=== PATIENT | female | born 1985 | race American Indian/Alaskan Native ===

== ENCOUNTER 2017-04-23 20:52 | Emergency (ER) | payer MEDICAID ==
[~2017-04-23] VITALS: Ht 154.9 cm; Wt 72.7 kg
[~2017-04-23 20:52] MED LIST: CEPH500C5 PO; IBUP-1986 PO; NO HOME MEDS; PHEN-873 PO
[2017-04-23 21:23] LABS: CLARITY,URINE CLOUDY (Clear); COLOR,URINE YELLOW (Yellow); GLUCOSE, URINE NEGATIVE (Neg); KETONES,URINE 40 mg/dl (Neg); LEUKOCYTE ESTERASE ,URINE SMALL (Neg); NITRITES, URINE POSITIVE (Neg); OCCULT BLOOD,URINE MODERATE (Neg); PH,URINE 5.5 (4.8-8.0); PROTEIN,URINE 100 mg/dl (Neg); UROBILINOGEN,URINE 0.2 E.U/dL (0.2-1.0)
[2017-04-23 21:29] LABS: UA COLLECTION TYPE CLN CATCH MIDSTREAM
[2017-04-23 21:30] LABS: BACTERIA,URINE 4+ /HPF (Neg); SQUAMOUS EPITHELIAL CELL,UR FEW /LPF (FEW); WBC,URINE TNTC /HPF (0-4)
[2017-04-23 21:34] LABS: BASOPHILS % (AUTO) 0.3 % (0-1); EOSINOPHILS # (AUTO) 0.1 X10'3 (0-0.9); EOSINOPHILS % (AUTO) 1.5 % (0-6); HEMATOCRIT 31.8 % (35.0-45.0); HEMOGLOBIN 10.8 g/dl (12.0-16.0); LYMPHOCYTES # (AUTO) 0.9 X10'3 (1.1-4.8); LYMPHOCYTES % (AUTO) 9.9 % (21-51); MEAN CORPUSCULAR HEMOGLOBIN 28.6 PG (27.0-31.0); MEAN CORPUSCULAR HGB CONC 33.8 % (33.0-36.5); MEAN CORPUSCULAR VOLUME 84.8 FL (78-98); MEAN PLATELET VOLUME 6.3 FL (7.4-10.4); MONOCYTES # (AUTO) 0.7 X10'3 (0-0.9); MONOCYTES % (AUTO) 7.4 % (2-12); NEUTROPHILS # (AUTO) 7.5 X10'3 (1.8-7.7); NEUTROPHILS % (AUTO) 80.9 % (42-75); PLATELET COUNT 233 X10'3 (140-440); RED BLOOD COUNT 3.75 X10'6 (4.20-5.60); RED CELL DISTRIBUTION WIDTH 13.4 % (11.5-14.5); WHITE BLOOD COUNT 9.2 X10'3 (4.5-11.0)
[2017-04-23] MEDS ORDERED: phenazopyridine 100mg tablet PO ONE (21:35)
[2017-04-23 21:44] LABS: INR 0.9 INR; PROTHROMBIN TIME 9.4 SECONDS (9.0-12.0)
[2017-04-23 21:49] LABS: ALANINE AMINOTRANSFERASE 20 U/L (12-78); ALBUMIN 2.7 G/DL (3.4-5.0); ALBUMIN/GLOBULIN RATIO 0.7 (1.1-1.5); ALKALINE PHOSPHATASE 81 IU/L (46-116); ANION GAP 5 (8-16); ASPARTATE AMINO TRANSFERASE 12 U/L (10-37); BILIRUBIN,TOTAL 0.7 MG/DL (0.1-1.0); BLOOD UREA NITROGEN 5 MG/DL (7-18); BUN/CREATININE RATIO 7.1 (6.6-38.0); CALCIUM 8.5 MG/DL (8.5-10.1); CHLORIDE 99 MMOL/L (99-107); GLUCOSE 138 MG/DL (70-104); POTASSIUM 3.3 MMOL/L (3.5-5.1); SODIUM 131 MMOL/L (135-145); TOTAL CARBON DIOXIDE 26.6 MMOL/L (24-32); TOTAL PROTEIN 6.4 G/DL (6.4-8.2); eGFR > 90 ML/MIN
[2017-04-23] MEDS ORDERED: CefTRIAXone 2gm/NS 100ml IVPB 100 ML IV ONE (21:50)
[2017-04-23] MEDS ORDERED: normal saline 1000ml 1,000 ML IV ONE (22:00)
[2017-04-23] MEDS ORDERED: NITR100C6 PO (22:43)
[2017-04-23 23:41] VITALS: BP 92/65
== END 2017-04-23 23:43 | disposition home or self-care (01) ==
LOC: ER 20:52
DX: O23.42 Unspecified infection of urinary tract in pregnancy, second trimester (principal); O26.892 Other specified pregnancy related conditions, second trimester; M54.5 Low back pain; F15.10 Other stimulant abuse, uncomplicated; Z88.8 Allergy status to other drugs, medicaments and biological substances; Z3A.24 24 weeks gestation of pregnancy
CPT/HCPCS: 36415; 80053; 81001; 85025; 85610; 87077; 87088; 87186; 96365; 99285; J0696; J7030; 99284

== ENCOUNTER 2017-11-06 16:31 | Emergency (ER) | payer MEDICAID ==
[~2017-11-06] VITALS: Ht 154.9 cm; Wt 70.0 kg
[~2017-11-06 16:31] MED LIST changes: -CEPH500C5 PO; +NITR100C6 PO
[2017-11-06 16:37] VITALS: BP 124/78
[2017-11-06] MEDS ORDERED: LIDOcaine 1.5% w/epinephrine 1:200,000 5ml ampul IJ ONE (16:55)
[2017-11-06] MEDS ORDERED: CEPH-572 PO (17:07)
[2017-11-06] MEDS ORDERED: SULF1TAB49 PO (17:07)
== END 2017-11-06 17:42 | disposition home or self-care (01) ==
LOC: ER 16:32
DX: T63.301A Toxic effect of unspecified spider venom, accidental (unintentional), initial encounter (principal); F15.90 Other stimulant use, unspecified, uncomplicated; Z98.890 Other specified postprocedural states; Z88.5 Allergy status to narcotic agent; Z79.899 Other long term (current) drug therapy; Y92.89 Other specified places as the place of occurrence of the external cause
CPT/HCPCS: 10060; 99283; A6449; J3490

== ENCOUNTER 2018-10-29 12:03 | Emergency (ER) | payer MEDICAID ==
[~2018-10-29] VITALS: Ht 165.1 cm; Wt 70.9 kg
[~2018-10-29 12:03] MED LIST changes: +PHEN-786 PO; -PHEN-873 PO
[2018-10-29 12:07] VITALS: BP 125/76
--- NOTE | 2018-10-29 12:11 | NUR ---
PT GIVEN ICE PACK FOR NECK.
== END 2018-10-29 12:17 ==
LOC: ER 12:04
DX: Z02.89 Encounter for other administrative examinations (principal); F15.90 Other stimulant use, unspecified, uncomplicated; Z88.5 Allergy status to narcotic agent; Z79.899 Other long term (current) drug therapy; Z98.890 Other specified postprocedural states; V49.9XXA Car occupant (driver) (passenger) injured in unspecified traffic accident, initial encounter; Y93.89 Activity, other specified; Y92.488 Other paved roadways as the place of occurrence of the external cause; Y99.8 Other external cause status
CPT/HCPCS: 99283

== ENCOUNTER 2019-11-18 20:50 | Emergency (ER) | payer MEDICAID ==
[~2019-11-18] VITALS: Ht 154.9 cm; Wt 68.2 kg
[~2019-11-18 20:50] MED LIST changes: +ALBU8.5H8 IH
[2019-11-18 21:40] LABS: EOSINOPHILS # (AUTO) 0.1 X10'3 (0-0.9); EOSINOPHILS % (AUTO) 2.6 % (0-6); HEMATOCRIT 33.9 % (35.0-45.0); HEMOGLOBIN 10.9 g/dl (12.0-16.0); LYMPHOCYTES # (AUTO) 1.8 X10'3 (1.1-4.8); LYMPHOCYTES % (AUTO) 37.1 % (21-51); MEAN CORPUSCULAR HEMOGLOBIN 23.5 PG (27.0-31.0); MEAN CORPUSCULAR VOLUME 73.4 FL (78-98); MONOCYTES # (AUTO) 0.5 X10'3 (0-0.9); MONOCYTES % (AUTO) 10.3 % (2-12); NEUTROPHILS # (AUTO) 2.3 X10'3 (1.8-7.7); PLATELET COUNT 295 X10'3 (140-440); RED BLOOD COUNT 4.62 X10'6 (4.20-5.60); RED CELL DISTRIBUTION WIDTH 16.7 % (11.5-14.5); WHITE BLOOD COUNT 4.7 X10'3 (4.5-11.0)
[2019-11-18 21:54] LABS: ALANINE AMINOTRANSFERASE 18 U/L (12-78); ALBUMIN 3.7 G/DL (3.4-5.0); ALBUMIN/GLOBULIN RATIO 0.9 (1.1-1.5); ALKALINE PHOSPHATASE 90 IU/L (46-116); ANION GAP 7 (8-16); ASPARTATE AMINO TRANSFERASE 11 U/L (10-37); BILIRUBIN,TOTAL 0.3 MG/DL (0.1-1.0); BLOOD UREA NITROGEN 11 MG/DL (7-18); BUN/CREATININE RATIO 12.6 (6.6-38.0); CALCIUM 8.5 MG/DL (8.5-10.1); CHLORIDE 105 MMOL/L (99-107); CREATININE 0.87 MG/DL (0.40-0.90); GLUCOSE 83 MG/DL (70-104); LIPASE 87 U/L (73-393); POTASSIUM 3.9 MMOL/L (3.5-5.1); SODIUM 140 MMOL/L (135-145); TOTAL CARBON DIOXIDE 27.7 MMOL/L (24-32); TOTAL PROTEIN 7.6 G/DL (6.4-8.2); eGFR 75 ML/MIN
[2019-11-18 21:59] LABS: CLARITY,URINE CLOUDY (Clear); COLOR,URINE YELLOW (Yellow); GLUCOSE, URINE NEGATIVE (Neg); KETONES,URINE NEGATIVE (Neg); LEUKOCYTE ESTERASE ,URINE SMALL (Neg); NITRITES, URINE NEGATIVE (Neg); OCCULT BLOOD,URINE MODERATE (Neg); PH,URINE 5.5 (4.8-8.0); PROTEIN,URINE NEGATIVE (Neg); UA COLLECTION TYPE CLN CATCH MIDSTREAM; UROBILINOGEN,URINE 0.2 E.U/dL (0.2-1.0)
[2019-11-18 22:00] LABS: URINE HCG NEGATIVE (NEG)
[2019-11-18 22:04] LABS: BACTERIA,URINE 3+ /HPF (Neg); SQUAMOUS EPITHELIAL CELL,UR FEW /LPF (FEW); WBC,URINE TNTC /HPF (0-4)
[2019-11-18] MEDS ORDERED: morphine 10mg/ml inj. IV ONE (22:15)
[2019-11-18] MEDS ORDERED: ondansetron/PF 4mg/2ml inj IV ONE (22:15)
[2019-11-18] MEDS ORDERED: ketorolac trometh. 30mg/ml inj. IV ONE (22:15)
[2019-11-18] MEDS ORDERED: CEPH500C5 PO (23:41)
[2019-11-18] MEDS ORDERED: PHEN-716 PO (23:41)
[2019-11-18] MEDS ORDERED: cephalexin 250mg capsule PO ONE (23:45)
[2019-11-18] MEDS ORDERED: CefTRIAXone 1000mg IM Kit (w/lidocaine diluent) IM ONE (23:50)
[2019-11-19 00:30] VITALS: BP 128/89
[2019-11-19] MEDS ORDERED: phenazopyridine 100mg tablet PO ONE (00:35)
== END 2019-11-19 01:07 | disposition home or self-care (01) ==
LOC: ER 20:51
DX: N39.0 Urinary tract infection, site not specified (principal); R10.32 Left lower quadrant pain; R10.31 Right lower quadrant pain; M54.5 Low back pain; R11.0 Nausea; F15.90 Other stimulant use, unspecified, uncomplicated; Z87.440 Personal history of urinary (tract) infections; Z98.890 Other specified postprocedural states; Z88.8 Allergy status to other drugs, medicaments and biological substances; Z79.2 Long term (current) use of antibiotics; Z79.899 Other long term (current) drug therapy
CPT/HCPCS: 36415; 74176; 80053; 81001; 81025; 83690; 85025; 87088; 96372; 96374; 96375; 99284; J0696; J1885; J2270; J2405

== ENCOUNTER 2020-01-24 17:20 | Emergency (ER) | payer MEDICAID ==
[~2020-01-24] VITALS: Ht 154.9 cm; Wt 70.9 kg
[~2020-01-24 17:20] MED LIST changes: +PHEN-716 PO
[2020-01-24 18:29] LABS: URINE HCG NEGATIVE (NEG)
[2020-01-24 18:31] LABS: BASOPHILS # (AUTO) 0.1 X10'3 (0-0.2); BASOPHILS % (AUTO) 1.2 % (0-1); EOSINOPHILS # (AUTO) 0.5 X10'3 (0-0.9); EOSINOPHILS % (AUTO) 7.9 % (0-6); HEMATOCRIT 38.2 % (35.0-45.0); HEMOGLOBIN 12.1 g/dl (12.0-16.0); LYMPHOCYTES # (AUTO) 2.1 X10'3 (1.1-4.8); MEAN CORPUSCULAR HEMOGLOBIN 24.4 PG (27.0-31.0); MEAN CORPUSCULAR HGB CONC 31.7 g/dL (33.0-36.5); MEAN CORPUSCULAR VOLUME 76.9 FL (78-98); MEAN PLATELET VOLUME 7.4 FL (7.4-10.4); MONOCYTES # (AUTO) 0.5 X10'3 (0-0.9); MONOCYTES % (AUTO) 8.5 % (2-12); NEUTROPHILS # (AUTO) 2.6 X10'3 (1.8-7.7); NEUTROPHILS % (AUTO) 46.4 % (42-75); PLATELET COUNT 324 X10'3 (140-440); RED BLOOD COUNT 4.97 X10'6 (4.20-5.60); RED CELL DISTRIBUTION WIDTH 16.7 % (11.5-14.5); WHITE BLOOD COUNT 5.7 X10'3 (4.5-11.0)
[2020-01-24 18:32] LABS: CLARITY,URINE SLIGHTLY CLOUDY (Clear); COLOR,URINE YELLOW (Yellow); GLUCOSE, URINE NEGATIVE (Neg); KETONES,URINE NEGATIVE (Neg); LEUKOCYTE ESTERASE ,URINE NEGATIVE (Neg); NITRITES, URINE NEGATIVE (Neg); OCCULT BLOOD,URINE NEGATIVE (Neg); PH,URINE 5.5 (4.8-8.0); PROTEIN,URINE NEGATIVE (Neg); UA COLLECTION TYPE CLN CATCH MIDSTREAM; UROBILINOGEN,URINE 0.2 E.U/dL (0.2-1.0)
[2020-01-24 18:41] LABS: BACTERIA,URINE 1+ /HPF (Neg); MUCUS STRANDS MODERATE /LPF (Neg); RBC,URINE 0-2 /HPF (0-2); SQUAMOUS EPITHELIAL CELL,UR MODERATE /LPF (FEW)
[2020-01-24 18:47] LABS: ALANINE AMINOTRANSFERASE 19 U/L (12-78); ALBUMIN 3.9 G/DL (3.4-5.0); ALBUMIN/GLOBULIN RATIO 0.9 (1.1-1.5); ALKALINE PHOSPHATASE 85 IU/L (46-116); ANION GAP 7 (8-16); ASPARTATE AMINO TRANSFERASE 18 U/L (10-37); BILIRUBIN,TOTAL 0.3 MG/DL (0.1-1.0); BLOOD UREA NITROGEN 14 MG/DL (7-18); BUN/CREATININE RATIO 17.1 (6.6-38.0); CHLORIDE 103 MMOL/L (99-107); CREATININE 0.82 MG/DL (0.40-0.90); GLUCOSE 89 MG/DL (70-104); LIPASE 73 U/L (73-393); POTASSIUM 4.2 MMOL/L (3.5-5.1); SODIUM 140 MMOL/L (135-145); TOTAL CARBON DIOXIDE 30.2 MMOL/L (24-32); TOTAL PROTEIN 8.1 G/DL (6.4-8.2); eGFR 80 ML/MIN
[2020-01-24 18:56] VITALS: BP 129/91
--- NOTE | 2020-01-24 19:20 | NUR ---
Patient requested to use restroom approximately 15 minutes ago. She had not returned to her room so I checked all the restrooms in the ER and cannot find her. Her clothing and purse are gone. Florencio notified that the patient appears to have eloped.
== END 2020-01-24 19:22 | disposition left against medical advice (07) ==
LOC: ER 17:20
DX: R10.9 Unspecified abdominal pain (principal); Z53.21 Procedure and treatment not carried out due to patient leaving prior to being seen by health care provider
CPT/HCPCS: 36415; 80053; 81001; 81025; 83690; 85025; 87088; 93005

== ENCOUNTER 2020-03-13 01:08 | Emergency (ER) | payer MEDICAID ==
[~2020-03-13] VITALS: Ht 154.9 cm; Wt 69.0 kg
--- NOTE | 2020-03-13 02:39 | NUR ---
lab called for result of UA.
[2020-03-13 02:44] LABS: CLARITY,URINE CLOUDY (Clear); COLOR,URINE YELLOW (Yellow); GLUCOSE, URINE NEGATIVE (Neg); KETONES,URINE NEGATIVE (Neg); LEUKOCYTE ESTERASE ,URINE MODERATE (Neg); NITRITES, URINE NEGATIVE (Neg); OCCULT BLOOD,URINE SMALL (Neg); PH,URINE 5.5 (4.8-8.0); PROTEIN,URINE NEGATIVE (Neg); URINE HCG NEGATIVE (NEG)
[2020-03-13 03:02] LABS: UA COLLECTION TYPE CLN CATCH MIDSTREAM
[2020-03-13 03:03] LABS: BACTERIA,URINE FEW /HPF (Neg); SQUAMOUS EPITHELIAL CELL,UR FEW /LPF (FEW); WBC CLUMPS,URINE FEW /HPF (NEGATIVE); WBC,URINE 50-100 /HPF (0-4)
[2020-03-13] MEDS ORDERED: cephalexin 500mg capsule PO ONE (03:05)
--- NOTE | 2020-03-13 03:05 | NUR ---
lying on left side no complaints. additional blankets given for warmth
[2020-03-13] MEDS ORDERED: PHEN-716 PO (03:15)
[2020-03-13] MEDS ORDERED: CEPH500C5 PO (03:15)
[2020-03-13 03:23] VITALS: BP 126/83
== END 2020-03-13 03:24 | disposition home or self-care (01) ==
LOC: ER 01:09
DX: N39.0 Urinary tract infection, site not specified (principal); M54.5 Low back pain; F17.200 Nicotine dependence, unspecified, uncomplicated; F15.10 Other stimulant abuse, uncomplicated; Z88.5 Allergy status to narcotic agent; Z79.899 Other long term (current) drug therapy
CPT/HCPCS: 81001; 81025; 87077; 87088; 87186; 99283

== ENCOUNTER 2020-09-10 17:48 | Emergency (ER) | payer MEDICAID ==
[~2020-09-10] VITALS: Ht 154.9 cm; Wt 73.6 kg
[~2020-09-10 17:48] MED LIST changes: +CEPH-585 PO
[2020-09-10 18:10] VITALS: BP 148/100
== END 2020-09-10 22:08 | disposition left against medical advice (07) ==
LOC: ER 17:49
DX: R10.13 Epigastric pain (principal); Z53.21 Procedure and treatment not carried out due to patient leaving prior to being seen by health care provider

== ENCOUNTER 2021-10-07 14:23 | Emergency (ER) | payer MEDICAID ==
[~2021-10-07 14:23] MED LIST changes: +ALBU8.5H17 IH; -ALBU8.5H8 IH; -CEPH-585 PO
--- NOTE | 2021-10-07 15:03 | NUR ---
NOT IN LOBBY AT THIS TIME.
--- NOTE | 2021-10-07 15:27 | NUR ---
NOT IN LOBBY AT THIS TIME.
--- NOTE | 2021-10-07 15:40 | NUR ---
NOT IN LOBBY.
[2021-10-07] MEDS ORDERED: SULF1TAB49 PO (18:30)
[2021-10-07] MEDS ORDERED: IBUP-1986 PO (18:31)
== END 2021-10-07 16:02 | disposition left against medical advice (07) ==
LOC: ER 14:23
DX: Z00.8 Encounter for other general examination (principal); Z53.21 Procedure and treatment not carried out due to patient leaving prior to being seen by health care provider

== ENCOUNTER 2021-10-07 16:07 | Emergency (ER) | payer MEDICAID ==
[~2021-10-07] VITALS: Ht 154.9 cm; Wt 71.8 kg
[2021-10-07 16:26] VITALS: BP 133/88
[2021-10-07] MEDS ORDERED: ondansetron 4mg rapidly disintigrating tab PO ONE (17:55)
[2021-10-07] MEDS ORDERED: morphine 4 MG/ML inj SYRINge IM ONE (17:55)
[2021-10-07] MEDS ORDERED: SULF1TAB49 PO (18:30)
[2021-10-07] MEDS ORDERED: sulfamethoxazole/trimethoprim DS (800/160mg) tablet PO ONE (18:30)
[2021-10-07] MEDS ORDERED: IBUP-1986 PO (18:31)
== END 2021-10-07 19:02 | disposition home or self-care (01) ==
LOC: ER 16:08
DX: N75.1 Abscess of Bartholin's gland (principal); F15.10 Other stimulant abuse, uncomplicated; Z87.81 Personal history of (healed) traumatic fracture; Z87.448 Personal history of other diseases of urinary system; Z88.5 Allergy status to narcotic agent; Z79.899 Other long term (current) drug therapy; Z79.2 Long term (current) use of antibiotics
CPT/HCPCS: 56405; 96372; 99284; J2270

== ENCOUNTER 2022-06-15 22:43 | Emergency (ER) | payer MEDICAID ==
[~2022-06-15] VITALS: Ht 156.2 cm; Wt 74.5 kg
[2022-06-15 23:00] VITALS: BP 147/97
[2022-06-16] MEDS ORDERED: bacitracin 15gm ointment TP ONE (00:55)
[2022-06-16] MEDS ORDERED: ondansetron 4mg rapidly disintigrating tab PO ONE (00:55)
== END 2022-06-16 02:23 | disposition home or self-care (01) ==
LOC: ER 22:43
DX: S41.011A Laceration without foreign body of right shoulder, initial encounter (principal); F15.90 Other stimulant use, unspecified, uncomplicated; Z98.890 Other specified postprocedural states; Z88.5 Allergy status to narcotic agent; Z79.899 Other long term (current) drug therapy; W18.30XA Fall on same level, unspecified, initial encounter; Y93.89 Activity, other specified; Y92.89 Other specified places as the place of occurrence of the external cause; Y99.8 Other external cause status
CPT/HCPCS: 12004; 73030; 99283

== ENCOUNTER 2023-09-16 17:06 | Inpatient (IN) | payer MEDICAID ==
[~2023-09-16] VITALS: Ht 154.9 cm; Wt 84.3 kg
[2023-09-16 19:39] LABS: BASOPHILS # (AUTO) 0.1 X10'3 (0-0.2); BASOPHILS % (AUTO) 0.6 % (0-1); EOSINOPHILS # (AUTO) 0.2 X10'3 (0-0.9); EOSINOPHILS % (AUTO) 2.7 % (0-6); HEMATOCRIT 33.9 % (35.0-45.0); HEMOGLOBIN 10.7 g/dl (12.0-16.0); LYMPHOCYTES # (AUTO) 2.5 X10'3 (1.1-4.8); LYMPHOCYTES % (AUTO) 29.2 % (21-51); MEAN CORPUSCULAR HEMOGLOBIN 22.7 PG (27.0-31.0); MEAN CORPUSCULAR HGB CONC 31.4 g/dL (33.0-36.5); MEAN CORPUSCULAR VOLUME 72.2 FL (78-98); MEAN PLATELET VOLUME 6.4 FL (7.4-10.4); MONOCYTES # (AUTO) 0.7 X10'3 (0-0.9); MONOCYTES % (AUTO) 8.3 % (2-12); NEUTROPHILS # (AUTO) 5.1 X10'3 (1.8-7.7); NEUTROPHILS % (AUTO) 59.2 % (42-75); PLATELET COUNT 399 X10'3 (140-440); RED CELL DISTRIBUTION WIDTH 17.2 % (11.5-14.5); WHITE BLOOD COUNT 8.6 X10'3 (4.5-11.0)
[2023-09-16 19:46] LABS: HCG SERUM QL NEGATIVE
[2023-09-16 19:49] LABS: APTT 26 SECONDS (22-32)
[2023-09-16] MEDS: ondansetron/PF 4mg/2ml inj IV ONE (19:51)
[2023-09-16] MEDS: morphine 4 MG/ML inj SYRINge IV ONE (19:52)
[2023-09-16 19:54] LABS: ALANINE AMINOTRANSFERASE 27 U/L (12-78); ALBUMIN 3.3 G/DL (3.4-5.0); ALBUMIN/GLOBULIN RATIO 0.6 (1.1-1.5); ALKALINE PHOSPHATASE 112 IU/L (46-116); ANION GAP 5 (8-16); ASPARTATE AMINO TRANSFERASE 22 U/L (10-37); BILIRUBIN,TOTAL 0.2 MG/DL (0.1-1.0); BLOOD UREA NITROGEN 12 MG/DL (7-18); BUN/CREATININE RATIO 12.4 (10.0-20.0); C-REACTIVE PROTEIN 1.99 MG/DL (0.0-0.5); CALCIUM 8.9 MG/DL (8.5-10.1); CHLORIDE 104 MMOL/L (99-107); CREATININE 0.97 MG/DL (0.40-0.90); GLUCOSE 87 MG/DL (70-104); SODIUM 137 MMOL/L (135-145); TOTAL PROTEIN 8.7 G/DL (6.4-8.2); eCRCL 60 ML/MIN; eGFR 65 ML/MIN
[2023-09-16] MEDS: dexamethasone sod phosphate 10mg/ml inj IM STA (19:54)
[2023-09-16] MEDS: diphenhydrAMINE 50 mg/ml inj IV ONE (19:57)
[2023-09-16 20:01] LABS: POTASSIUM 4.2 MMOL/L (3.5-5.1)
[2023-09-16 20:03] LABS: INR 0.9 INR
[2023-09-16] MEDS: vancomycin/NS 1 GM ADD-VANTAGE 250 ML IV ONE (20:05)
[2023-09-16] MEDS: piperacillin/tazo 4.5gm/100ml 100 ML IV STA (20:23)
[2023-09-16] MEDS: normal saline 1000ml 1,000 ML IV ONE (21:12)
[2023-09-16] MEDS ORDERED: ondansetron 4mg rapidly disintigrating tab PO PRN (21:55)
[2023-09-16] MEDS ORDERED: magnesium 4gm in 100ml NS 100 ML IV PRN (21:55)
[2023-09-16] MEDS ORDERED: HYDROcodone/acetaminophen 5mg/325mg tablet PO PRN (21:55)
[2023-09-16] MEDS ORDERED: magnesium 2GM in 50ml NS 50 ML IV PRN (21:55)
[2023-09-16] MEDS ORDERED: acetaminophen 325mg tablet PO PRN ×2 (21:55)
[2023-09-16] MEDS ORDERED: magnesium Cl slow-release 64mg tablet PO PRN (21:55)
[2023-09-16] MEDS ORDERED: mag hydrox/Alum hydrox/simeth 30ml oral suspension PO PRN (21:55)
[2023-09-16] MEDS ORDERED: magnesium hydroxide 30ml (MOM) UD suspension PO PRN (21:55)
[2023-09-16] MEDS ORDERED: potassium Cl 40MEQ/1/2NS 520ml 520 ML IV PRN (21:55)
[2023-09-16] MEDS ORDERED: potassium Cl 20 mEq SR tablet PO PRN ×2 (21:55)
[2023-09-16 23:00] VITALS: BP 114/81; PULSE 74; RESP 12; TEMP 97.9; O2SAT 98
[2023-09-16 23:02] LABS: HEMOGLOBIN A1C 6.2 % (4.5-6.2)
[2023-09-16] MEDS: morphine 2 MG/ML inj. syringe IV PRN (23:10)
[2023-09-16 23:12] LABS: MAGNESIUM 1.5 MG/DL (1.5-2.4); POTASSIUM 3.2 MMOL/L (3.5-5.1)
[2023-09-17] MEDS: normal saline 1000ml 1,000 ML IV SCH (00:27)
[2023-09-17] MEDS: HYDROcodone/acetaminophen 10/325mg tab PO PRN (01:10)
[2023-09-17 01:49] LABS: BILIRUBIN,URINE NEGATIVE (Neg); CLARITY,URINE CLEAR (Clear); COLOR,URINE YELLOW (Yellow); GLUCOSE, URINE NEGATIVE (Neg); KETONES,URINE NEGATIVE (Neg); LEUKOCYTE ESTERASE ,URINE NEGATIVE (Neg); NITRITES, URINE NEGATIVE (Neg); OCCULT BLOOD,URINE NEGATIVE (Neg); PROTEIN,URINE NEGATIVE (Neg); UA COLLECTION TYPE CLN CATCH MIDSTREAM; UROBILINOGEN,URINE 0.2 E.U/dL (0.2-1.0)
[2023-09-17 02:04] LABS: URINE AMPHETAMINE SCREEN POSITIVE (Neg); URINE BARBITUATE SCREEN NEGATIVE (Neg); URINE BENZODIAZEPINES SCREEN NEGATIVE (Neg); URINE CANNABINOID SCREEN NEGATIVE (Neg); URINE COCAINE SCREEN NEGATIVE (Neg); URINE METHADONE SCREEN POSITIVE (Neg); URINE PHENCYCLIDINE SCREEN NEGATIVE (Neg)
[2023-09-17] MEDS: piperacillin/tazo 3.375gm/50ml 50 ML IV SCH (04:10)
[2023-09-17 06:24] LABS: BASOPHILS % (AUTO) 0.1 % (0-1); EOSINOPHILS % (AUTO) 0 % (0-6); HEMATOCRIT 31.1 % (35.0-45.0); LYMPHOCYTES # (AUTO) 1.3 X10'3 (1.1-4.8); LYMPHOCYTES % (AUTO) 22.1 % (21-51); MEAN CORPUSCULAR HEMOGLOBIN 22.8 PG (27.0-31.0); MEAN CORPUSCULAR HGB CONC 32.2 g/dL (33.0-36.5); MEAN PLATELET VOLUME 6.3 FL (7.4-10.4); MONOCYTES # (AUTO) 0.1 X10'3 (0-0.9); MONOCYTES % (AUTO) 1.9 % (2-12); NEUTROPHILS # (AUTO) 4.3 X10'3 (1.8-7.7); NEUTROPHILS % (AUTO) 75.9 % (42-75); PLATELET COUNT 358 X10'3 (140-440); RED BLOOD COUNT 4.39 X10'6 (4.20-5.60); RED CELL DISTRIBUTION WIDTH 17.2 % (11.5-14.5); WHITE BLOOD COUNT 5.7 X10'3 (4.5-11.0)
[2023-09-17 06:42] LABS: ALANINE AMINOTRANSFERASE 25 U/L (12-78); ALBUMIN 2.7 G/DL (3.4-5.0); ALBUMIN/GLOBULIN RATIO 0.6 (1.1-1.5); ALKALINE PHOSPHATASE 89 IU/L (46-116); ANION GAP 7 (8-16); ASPARTATE AMINO TRANSFERASE 14 U/L (10-37); BILIRUBIN,TOTAL 0.3 MG/DL (0.1-1.0); BLOOD UREA NITROGEN 8 MG/DL (7-18); BUN/CREATININE RATIO 9.9 (10.0-20.0); CALCIUM 8.2 MG/DL (8.5-10.1); CHLORIDE 102 MMOL/L (99-107); CHOL/HDL RATIO 2.4 (0.00-4.99); CHOLESTEROL 115 MG/DL (0-200); CREATININE 0.81 MG/DL (0.40-0.90); GLUCOSE 138 MG/DL (70-104); HDL CHOLESTEROL 47 MG/DL (35-60); LDL CHOLESTEROL 62 MG/DL (50-100); MAGNESIUM 1.9 MG/DL (1.5-2.4); POTASSIUM 4.3 MMOL/L (3.5-5.1); SODIUM 134 MMOL/L (135-145); TOTAL CARBON DIOXIDE 25.2 MMOL/L (24-32); TOTAL PROTEIN 7.6 G/DL (6.4-8.2); TRIGLYCERIDES 41 MG/DL (20-135); eCRCL 72 ML/MIN; eGFR 80 ML/MIN
[2023-09-17 07:01] VITALS: BP 107/65; PULSE 81; RESP 12; TEMP 98; O2SAT 97
[2023-09-17] MEDS: nicotine 21mg patch - 24 hr TD SCH (08:00)
[2023-09-17] MEDS: K and/or MAG REPLACEMENT MC SCH (08:00)
[2023-09-17] MEDS: docusate sod 100mg capsule PO SCH (08:15)
[2023-09-17] MEDS: heparin, porcine 5000 units/ml vial SQ SCH (08:16)
[2023-09-17] MEDS: pantoprazole 40 MG vial IV SCH (08:18)
[2023-09-17 11:00] VITALS: BP 135/86; PULSE 84; RESP 20; TEMP 98.2; O2SAT 100
[2023-09-17] MEDS ORDERED: METH-603 PO (11:04)
[2023-09-17] MEDS: methadone 10mg tablet PO SCH (11:44)
[2023-09-17] MEDS: ondansetron/PF 4mg/2ml inj IV PRN (13:01)
[2023-09-17 18:00] VITALS: BP 123/62; PULSE 85; RESP 18; TEMP 97.8; O2SAT 95
[2023-09-17 20:00] VITALS: RESP 18; O2SAT 95
[2023-09-17] MEDS: doxycycline inj 100 MG in normal saline 100ml IV soln 100 ML IV SCH (20:57)
[2023-09-17 22:00] VITALS: BP 104/62; PULSE 73; RESP 18; TEMP 97.6; O2SAT 99
[2023-09-18 06:27] VITALS: BP 99/68; PULSE 74; RESP 14; TEMP 97; O2SAT 96
[2023-09-18 06:41] LABS: BASOPHILS % (AUTO) 0.8 % (0-1); EOSINOPHILS # (AUTO) 0.1 X10'3 (0-0.9); EOSINOPHILS % (AUTO) 1.4 % (0-6); HEMATOCRIT 28.2 % (35.0-45.0); HEMOGLOBIN 8.8 g/dl (12.0-16.0); LYMPHOCYTES # (AUTO) 2.4 X10'3 (1.1-4.8); LYMPHOCYTES % (AUTO) 41.5 % (21-51); MEAN CORPUSCULAR HEMOGLOBIN 22.4 PG (27.0-31.0); MEAN CORPUSCULAR HGB CONC 31.3 g/dL (33.0-36.5); MEAN CORPUSCULAR VOLUME 71.6 FL (78-98); MEAN PLATELET VOLUME 6.7 FL (7.4-10.4); MONOCYTES # (AUTO) 0.5 X10'3 (0-0.9); MONOCYTES % (AUTO) 7.8 % (2-12); NEUTROPHILS # (AUTO) 2.8 X10'3 (1.8-7.7); NEUTROPHILS % (AUTO) 48.5 % (42-75); PLATELET COUNT 342 X10'3 (140-440); RED BLOOD COUNT 3.94 X10'6 (4.20-5.60); RED CELL DISTRIBUTION WIDTH 17.2 % (11.5-14.5); WHITE BLOOD COUNT 5.8 X10'3 (4.5-11.0)
[2023-09-18 06:52] LABS: ALANINE AMINOTRANSFERASE 23 U/L (12-78); ALBUMIN 2.3 G/DL (3.4-5.0); ALBUMIN/GLOBULIN RATIO 0.5 (1.1-1.5); ALKALINE PHOSPHATASE 79 IU/L (46-116); ANION GAP 5 (8-16); ASPARTATE AMINO TRANSFERASE 16 U/L (10-37); BILIRUBIN,TOTAL 0.3 MG/DL (0.1-1.0); BLOOD UREA NITROGEN 13 MG/DL (7-18); BUN/CREATININE RATIO 15.7 (10.0-20.0); CHLORIDE 107 MMOL/L (99-107); CREATININE 0.83 MG/DL (0.40-0.90); GLUCOSE 109 MG/DL (70-104); MAGNESIUM 1.7 MG/DL (1.5-2.4); PHOSPHORUS 3.7 MG/DL (2.3-4.5); POTASSIUM 3.6 MMOL/L (3.5-5.1); SODIUM 138 MMOL/L (135-145); TOTAL CARBON DIOXIDE 26.5 MMOL/L (24-32); TOTAL PROTEIN 6.5 G/DL (6.4-8.2); eCRCL 70 ML/MIN; eGFR 77 ML/MIN
[2023-09-18 07:45] VITALS: RESP 14; O2SAT 96
[2023-09-18 11:00] VITALS: BP 114/69; PULSE 60; RESP 16; TEMP 98.1; O2SAT 98
[2023-09-18 18:00] VITALS: BP 99/56; PULSE 67; RESP 16; TEMP 97.9; O2SAT 96
[2023-09-18 19:39] LABS: ALBUMIN, UR Note: % (.); PROTEIN,TOTAL,URINE 9.2 mg/dL (Not Estab.)
[2023-09-18 20:00] VITALS: RESP 16; O2SAT 96
[2023-09-18 22:00] VITALS: BP 95/56; PULSE 68; RESP 19; TEMP 97.8; O2SAT 98
[2023-09-19 06:53] LABS: BASOPHILS % (AUTO) 0.8 % (0-1); EOSINOPHILS # (AUTO) 0.2 X10'3 (0-0.9); EOSINOPHILS % (AUTO) 2.5 % (0-6); HEMATOCRIT 30.9 % (35.0-45.0); HEMOGLOBIN 9.9 g/dl (12.0-16.0); LYMPHOCYTES # (AUTO) 2.6 X10'3 (1.1-4.8); MEAN CORPUSCULAR HEMOGLOBIN 22.9 PG (27.0-31.0); MEAN CORPUSCULAR VOLUME 71.6 FL (78-98); MEAN PLATELET VOLUME 6.8 FL (7.4-10.4); MONOCYTES # (AUTO) 0.5 X10'3 (0-0.9); NEUTROPHILS # (AUTO) 2.9 X10'3 (1.8-7.7); NEUTROPHILS % (AUTO) 46.7 % (42-75); PLATELET COUNT 361 X10'3 (140-440); RED BLOOD COUNT 4.32 X10'6 (4.20-5.60); RED CELL DISTRIBUTION WIDTH 17.1 % (11.5-14.5); WHITE BLOOD COUNT 6.3 X10'3 (4.5-11.0)
[2023-09-19 07:38] LABS: ALANINE AMINOTRANSFERASE 27 U/L (12-78); ALBUMIN 2.5 G/DL (3.4-5.0); ALBUMIN/GLOBULIN RATIO 0.6 (1.1-1.5); ALKALINE PHOSPHATASE 80 IU/L (46-116); ANION GAP 6 (8-16); ASPARTATE AMINO TRANSFERASE 17 U/L (10-37); BILIRUBIN,TOTAL 0.2 MG/DL (0.1-1.0); BLOOD UREA NITROGEN 16 MG/DL (7-18); BUN/CREATININE RATIO 20.3 (10.0-20.0); CALCIUM 8.6 MG/DL (8.5-10.1); CHLORIDE 103 MMOL/L (99-107); CREATININE 0.79 MG/DL (0.40-0.90); GLUCOSE 103 MG/DL (70-104); MAGNESIUM 1.7 MG/DL (1.5-2.4); PHOSPHORUS 4.1 MG/DL (2.3-4.5); POTASSIUM 4.2 MMOL/L (3.5-5.1); SODIUM 137 MMOL/L (135-145); TOTAL CARBON DIOXIDE 27.9 MMOL/L (24-32); TOTAL PROTEIN 6.9 G/DL (6.4-8.2); eCRCL 74 ML/MIN; eGFR 82 ML/MIN
[2023-09-19 08:00] VITALS: RESP 18; O2SAT 99
[2023-09-19] MEDS: pantoprazole 40mg Tablet.DR PO SCH (08:00)
[2023-09-19 09:00] VITALS: RESP 18
[2023-09-19 09:52] LABS: A/G RATIO 0.7 (0.7-1.7); ALBUMIN 2.9 g/dL (2.9-4.4); ALPHA-1-GLOBULIN 0.3 g/dL (0.0-0.4); ALPHA-2-GLOBULIN 0.7 g/dL (0.4-1.0); GAMMA GLOBULIN 1.9 g/dL (0.4-1.8); GLOBULIN, TOTAL 3.9 g/dL (2.2-3.9); M-SPIKE Not Observed g/dL (Not Observed); PROTEIN, TOTAL, SERUM 6.8 g/dL (6.0-8.5)
[2023-09-19] MEDS ORDERED: ACET-1008 PO (09:55)
[2023-09-19] MEDS ORDERED: DOXY-243 PO (09:56)
[2023-09-19] MEDS ORDERED: NICO-687 TD (09:56)
== END 2023-09-19 13:18 | disposition home or self-care (01) | DRG 383 ==
LOC: ER 17:07 → ED HOLD 22:09 → SUR 3N 23:11
PROVIDERS: ADMIT Family Medicine; ATTEND Internal Medicine
DX: L03.115 Cellulitis of right lower limb (principal); N17.0 Acute kidney failure with tubular necrosis; D50.9 Iron deficiency anemia, unspecified; E88.09 Other disorders of plasma-protein metabolism, not elsewhere classified; L03.116 Cellulitis of left lower limb; F15.129 Other stimulant abuse with intoxication, unspecified; Z72.0 Tobacco use; Z79.899 Other long term (current) drug therapy; Z88.8 Allergy status to other drugs, medicaments and biological substances; Z98.891 History of uterine scar from previous surgery; Z76.5 Malingerer [conscious simulation]
CPT/HCPCS: 36415; 73700; 80053; 80061; 80305; 81003; 82728; 83036; 83540; 83605; 83735; 84100; 84132; 84145; 84155; 84156; 84165; 84166; 84703; 85025; 85610; 85651; 85730; 86140; 87040; 87081; 93306; 99285; A6223; A6258; A6446; A6449; C9113; G0378; J1100; J1200; J1644; J2270; J2405; J2543; J3370; J3490; J7030

== ENCOUNTER 2024-10-17 21:16 | Emergency (ER) | payer MEDICAID ==
[~2024-10-17] VITALS: Ht 154.9 cm; Wt 80.7 kg
[~2024-10-17 21:16] MED LIST changes: +ACET-1008 PO; -ALBU8.5H17 IH; -IBUP-1986 PO; +METH-603 PO; +NICO-687 TD; -NITR100C6 PO; -NO HOME MEDS; -PHEN-716 PO; -PHEN-786 PO
[2024-10-17 21:33] VITALS: BP 140/101; PULSE 97; RESP 17; O2SAT 98
[2024-10-17 21:48] LABS: LEUKOCYTE ESTERASE ,URINE SMALL (Neg); OCCULT BLOOD,URINE MODERATE (Neg)
[2024-10-17 21:55] LABS: NITRITES, URINE NEGATIVE (Neg); UA COLLECTION TYPE CLN CATCH MIDSTREAM
[2024-10-17 21:56] LABS: MUCUS STRANDS FEW /LPF (Neg); SQUAMOUS EPITHELIAL CELL,UR FEW /LPF (FEW)
--- NOTE | 2024-10-17 21:57 | Physician Documentation ---
History of Present Illness ~ Chief Complaint: Urinary Symptoms Stated Complaint: BLADDER INFECTION Time Seen by MD: 21:51 Primary Medical Doctor: NO PMD HPI 39-year-old female with complaints of possible UTI, dysuria, urgency and frequency x3 days. Denies any frequent UTIs last UTI year ago. Some lower back pain. Denies fevers. Medication Reconciliation Allergies: Coded Allergies: hydromorphone (Verified Allergy, Severe, itching, HIVES, SOB, 11/18/19) Scheduled Methadone Hcl* (Dolophine*), 100 MG PO DAILY, (Reported) Nicotine 21 MG Patch* (Habitrol 21 MG Patch*), 1 PATCH TD DAILY Scheduled PRN Acetaminophen (Tylenol), 1 TAB PO Q6H PRN for pain or fever, (Reported) Past Medical History Past Medical History: No Pertinent History, UTI, Extremity Fracture Past Surgical History: , orthopedic surgeries Alcohol Use: None Drug Use: methamphetamine Lives with: Other Lives In: Home Occupation: employed Review of Systems All Other Systems at this time: Reviewed and Negative Genitourinary: Reports: see HPI Physical Exam Vital Signs: RN Vital Signs have been reviewed: Yes, Heart Rate: 97, Respir atory Rate: 17, BP: 140/101, Pulse Oximetry: 98, Weight: 80.700 Oxygen Flow Rate: 0 Physical Exam General: Alert, no apparent distress. Respiratory: Lungs clear, no respiratory distress. Chest: No accessory muscle use. Cardiovascular: Regular rate and rhythm, no murmurs. Gastrointestinal: Soft, nontender, no suprapubic tenderness no CVA tenderness Neurologic: Oriented x4. Psychiatric: Normal mood and affect. Skin: Normal color, warm and dry. No edema, no ecchymosis. Progress Results/Orders Results/Orders Orders - BRANDI REYNA NP Cult Urine + [address] (10/17/24 21:55) Completed Orders - BRANDI REYNA [employer] Ua W/Microscopic, Cult If Ind (10/17/24 21:37) Vital Signs 10/17/24 21:33 Pulse 97 Resp 17 B/P (MAP) 140/101 Pulse Ox 98 O2 Flow Rate 0 Laboratory Tests Test 10/17/24 21:37 Urine Specimen Description Cln catch midstream Urine Color Yellow Urine Clarity Clear Urine pH 6.0 Urine Specific [place] >=1.030 Urine Protein 100 H Urine Glucose (UA) Negative Urine Ketones Trace H Urine Occult Blood Moderate H Urine Nitrite Negative Urine Bilirubin Negative Urine Urobilinogen 1.0 Urine Leukocyte Esterase Small H Urine RBC 10-20 Urine WBC 50-100 H Urine Squamous Epithelial Cells Few Urine Bacteria 1+ Urine Mucus Few Urine Culture Indicated Indicated Volume Urine Centrifuged 10 ml Urine Comment Medical Decision Making Findings Three days of urgency frequency and dysuria UA to evaluate for UTI pyelonephritis versus cystitis Departure Time of Disposition: 22:06 Disposition: 01 HOME / SELF CARE / HOMELESS Impression: Primary Impression: Acute urinary tract infection Condition: Stable Discharge Instructions: Urinary Tract Infection, Adult Additional Instructions: Take antibiotics as prescribed maintain hydration follow up with primary care as needed Referrals: NO PRIMARY CARE PROVIDER (PCP) Prescriptions Ciprofloxacin HCl (Cipro) 500 Mg Tablet 1 TAB PO Q12H for 7 Days, #14 TAB Prov: BRANDI REYNA NP 10/17/24 Education Educated: Patient Educated regarding: diagnosis, treatment, need for follow up Signature Scribe Signature: No scribe Attestation: The note accurately reflects work and decisions made by me.Brandi Reyna - NGH[facility] 10/17/24 22:08 BRANDI REYNA NP Oct 17, 2024 21:57
[2024-10-17] MEDS ORDERED: CIPR-259 PO (22:07)
[2024-10-17] MEDS: ciprofloxacin 250mg tablet PO ONE (22:25)
== END 2024-10-17 22:29 | disposition home or self-care (01) ==
LOC: ER 21:17
DX: N39.0 Urinary tract infection, site not specified (principal); Z88.5 Allergy status to narcotic agent
CPT/HCPCS: 81001; 87077; 87088; 87186; 99283